=== PATIENT | male | born 1950 | race Hispanic/Latino ===

== ENCOUNTER → 2018-12-20 | Outpatient (CLI) | payer BC | END | disposition home or self-care (01) | LOC: SLP 20:28 | PROVIDERS: ATTEND Internal Medicine | DX: G47.33 Obstructive sleep apnea (adult) (pediatric) (principal) | CPT/HCPCS: 95810 ==

== ENCOUNTER → 2019-07-11 | Outpatient (CLI) | payer BC, MEDICARE | END | disposition home or self-care (01) | LOC: RAH 08:00 | PROVIDERS: ATTEND Orthopaedic Surgery | DX: M25.462 Effusion, left knee (principal); M23.92 Unspecified internal derangement of left knee | CPT/HCPCS: 73721 ==

== ENCOUNTER 2019-10-11 05:46 | Day surgery (SDC) | payer BC, MEDICARE ==
[2019-10-10 13:46] VITALS: BP 146/77
[~2019-10-11] VITALS: Ht 170.2 cm; Wt 84.4 kg
[2019-10-11] VITALS (14 sets, daily range): BP systolic 128–140; BP diastolic 71–84
[~2019-10-11 05:46] MED LIST: AMIT50TA3 PO; CHOL400T4 PO; LOSA1TAB37 PO; ROSU20TA31 PO
[2019-10-11] MEDS: CEFAZOLIN SODIUM 1 GM VIAL IVP SCH ×2 (06:00→08:10)
--- NOTE | 2019-10-11 06:00 | NUR ---
PREOP PT SITTING ON STRETCHER. PT IN NO DISTRESS. ORIENTED PT TO ROOM AND CALL LIGHT. PT HERE FOR LEFT KNEE SURGERY. PT HAS TINY RED LEE TO BILAT LEGS
[2019-10-11] MEDS ORDERED: LACTATED RINGERS 1000ML 1,000 ML IV ONE (06:11)
[2019-10-11] MEDS ORDERED: LISI1TAB32 PO (06:57)
[2019-10-11] MEDS ORDERED: AMLO-257 PO (06:57)
[2019-10-11] MEDS ORDERED: CLON1TAB12 PO (06:57)
[2019-10-11] MEDS ORDERED: LIDOCAINE PF 2% 5ML ABBOJECT ONE (07:18)
[2019-10-11] MEDS ORDERED: GLYCOPYRROLATE 1 MG/5 ML SYRINGE ONE (07:20)
[2019-10-11] MEDS ORDERED: DEXAMETHASONE SOD PHOSPHATE 10MG/ML 1ML VIAL ONE (07:20)
[2019-10-11] MEDS ORDERED: ONDANSETRON HCL 4 MG/2 ML VIAL ONE (07:21)
[2019-10-11] MEDS ORDERED: ROCURONIUM 10MG/1ML SYR 10 MG/ML ML ONE (07:21)
[2019-10-11] MEDS ORDERED: FENTANYL CITRATE PF 50 MCG/1 ML 2ML VIAL ONE (07:21)
[2019-10-11] MEDS ORDERED: MIDAZOLAM HCL 1 MG/ML 2ML VIAL ONE (07:21)
[2019-10-11] MEDS ORDERED: NEOSTIGMINE 5MG/5ML SYR IV ONE (07:21)
[2019-10-11] MEDS ORDERED: PROPOFOL 10 MG/ML 20ML VIAL IV ONE (07:21)
[2019-10-11] MEDS ORDERED: EPHEDRINE SULFATE 50 MG/ML AMPULE ONE (07:23)
[2019-10-11] MEDS ORDERED: ACET1TAB12 PO (09:00)
[2019-10-11] MEDS ORDERED: CEPH-578 PO (09:00)
[2019-10-11] MEDS ORDERED: NAPR-1192 PO (09:00)
[2019-10-11] MEDS ORDERED: KETOROLAC TROMETHAMINE 30MG/ML ONE (09:54)
--- NOTE | 2019-10-11 10:10 | NUR ---
POST RECEIVED PT FROM PACU, S/P LEFT KNEE ARTHROSCOPY DRESSING TO SITE DRY AND INTACT, NEUROVASCULAR CHECKS WNL. VS STABLE ON ARRIVAL. PT AWAKE AND ALERT IN BED,NO DISTRESS NOTED. PLAN OF CARE DISCUSS WITH PATIENT , CALL LIGHT WITHIN REACH
--- NOTE | 2019-10-11 10:40 | NUR ---
dc dc instructions given to pt spouse over the phone, instructed to f/u with dr. benjamin. on new med regimen possible side effect. 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 instructed to use crutches until able to ambulate independently . crutches provided . pt/ spouse verbalized understanding. photo copy of dr benjamin orders provided.
--- NOTE | 2019-10-11 10:50 | NUR ---
dc pt dc home via [facility],no distress noted. dressing to left knee dry and intact. pt accompanied by spouse
== END 2019-10-11 10:50 | disposition home or self-care (01) ==
LOC: DAH 05:46
PROVIDERS: ATTEND Orthopaedic Surgery
DX: S83.242A Other tear of medial meniscus, current injury, left knee, initial encounter (principal); M22.42 Chondromalacia patellae, left knee; F32.9 Major depressive disorder, single episode, unspecified; M19.90 Unspecified osteoarthritis, unspecified site; E78.00 Pure hypercholesterolemia, unspecified; I10 Essential (primary) hypertension; Z11.59 Encounter for screening for other viral diseases; X58.XXXA Exposure to other specified factors, initial encounter; Y93.89 Activity, other specified; Y92.89 Other specified places as the place of occurrence of the external cause; Y99.8 Other external cause status
CPT/HCPCS: 29881; 36415; A4213; A4215; A4221; A4222; A4223; A4606; A4649 ×2; A4663; A4930; A5120; A6223; J0690; J1100; J1885; J2001; J2250; J2405; J2704; J2710; J3010; J3490 ×2; J7030; J7120 ×2; U0003

== ENCOUNTER 2020-02-12 08:04 | Day surgery (SDC) | payer BC, MEDICARE ==
[2020-02-05 13:37] LABS: BASOPHILS % (AUTO) 0.8 % (0.0-5.0); EOSINOPHILS % (AUTO) 5.4 % (0.0-8.0); HEMATOCRIT 42.4 % (42-54); LYMPHOCYTES % (AUTO) 29.5 % (21.0-51.0); MEAN CORPUSCULAR HEMOGLOBIN 30.5 pg (27.0-33.0); MEAN CORPUSCULAR HGB CONC 33.5 g/dL (32.0-36.0); MONOCYTES % (AUTO) 11.4 % (3.0-13.0); NEUTROPHILS % (AUTO) 52.6 % (40.0-77.0); PLATELET COUNT (AUTO) 148 K/uL (130-400); RED BLOOD CELL COUNT(AUTO) 4.66 MIL/uL (4.50-6.20); RED CELL DISTRIBUTION WIDTH 13.2 % (11.0-15.5); WHITE BLOOD COUNT (AUTO) 6.1 K/uL (4.8-10.8)
[2020-02-05 13:45] LABS: CREATININE 0.9 mg/dL (0.5-1.5); POTASSIUM 4.8 mmol/L (3.5-5.1)
[~2020-02-12] VITALS: Ht 172.7 cm; Wt 80.7 kg
[2020-02-12] VITALS (16 sets, daily range): BP systolic 126–150; BP diastolic 64–87
[~2020-02-12 08:04] MED LIST changes: +AMLO-257 PO; +CEFAZOLIN SODIUM 1 GM VIAL IVP SCH; -CHOL400T4 PO; +CLON1TAB12 PO; +LISI1TAB32 PO; -LOSA1TAB37 PO
[2020-02-12] MEDS ORDERED: LACTATED RINGERS 1000ML 1,000 ML IV ONE (09:44)
[2020-02-12] MEDS ORDERED: SUCCINYLCHOLINE CHLORIDE 20 MG/ML 10 ML VIAL ONE (11:30)
[2020-02-12] MEDS ORDERED: LIDOCAINE HCL-MPF 1% 5ML AMP IJ ONE (11:30)
[2020-02-12] MEDS ORDERED: ONDANSETRON HCL 4 MG/2 ML VIAL ONE (11:30)
[2020-02-12] MEDS ORDERED: DEXAMETHASONE SOD PHOSPHATE 10MG/ML 1ML VIAL ONE (11:30)
[2020-02-12] MEDS ORDERED: LIDOCAINE PF 2% 5ML ABBOJECT ONE (11:30)
[2020-02-12] MEDS ORDERED: MIDAZOLAM HCL 1 MG/ML 2ML VIAL ONE (11:31)
[2020-02-12] MEDS ORDERED: ROCURONIUM 10MG/1ML SYR 10 MG/ML ML ONE (11:31)
[2020-02-12] MEDS ORDERED: PROPOFOL 10 MG/ML 20ML VIAL IV ONE (11:31)
[2020-02-12] MEDS ORDERED: FENTANYL CITRATE PF 50 MCG/1 ML 2ML VIAL ONE (11:33)
[2020-02-12] MEDS ORDERED: EPINEPHRINE 1 MG/ML 30ML VIAL IJ ONE (11:39)
[2020-02-12] MEDS ORDERED: ROPIVACAINE 0.5% 5MG/ML 30ML IJ ONE (12:28)
[2020-02-12] MEDS ORDERED: CEPH500B PO (14:52)
[2020-02-12] MEDS ORDERED: HYDR-4457 PO (14:52)
[2020-02-12] MEDS ORDERED: IBUP-2070 PO (14:52)
[2020-02-12] MEDS ORDERED: KETOROLAC TROMETHAMINE 30MG/ML ONE (16:14)
== END 2020-02-12 16:50 | disposition home or self-care (01) ==
LOC: DAH 08:04
PROVIDERS: ATTEND Orthopaedic Surgery
DX: M75.121 Complete rotator cuff tear or rupture of right shoulder, not specified as traumatic (principal); Z20.828 Contact with and (suspected) exposure to other viral communicable diseases; M19.011 Primary osteoarthritis, right shoulder; G89.29 Other chronic pain; E78.00 Pure hypercholesterolemia, unspecified; I10 Essential (primary) hypertension; Z79.899 Other long term (current) drug therapy
CPT/HCPCS: 29824; 29826; 29827; 36415; 64415; 76942; 80048; 85025; A4565; A4649 ×4; A4930; A6204; C1713 ×2; C9803; G0168; J0171; J0330; J0690 ×2; J1100; J1885; J2001; J2250; J2405; J2704; J2795; J3010; J3490; J7120 ×2; U0003

== ENCOUNTER → 2020-07-13 | Outpatient (CLI) | payer BC, MEDICARE ==
[~2020-07-13] MED LIST changes: -CEFAZOLIN SODIUM 1 GM VIAL IVP SCH; +CEPH500B PO; +HYDR-4457 PO; +IBUP-2070 PO
== END | disposition home or self-care (01) ==
LOC: RAH 07:41
PROVIDERS: ATTEND Orthopaedic Surgery
DX: M75.101 Unspecified rotator cuff tear or rupture of right shoulder, not specified as traumatic (principal)
CPT/HCPCS: 73221